=== PATIENT | female | born 1970 | race African-American/Black ===

== ENCOUNTER 2017-11-15 14:27 | Observation (INO) ==
[2017-11-15] MEDS ORDERED: DIPH/TET/ACEL PERT BOOSTER VACCINE 0.5 ML VIAL IM ONE (15:26)
[2017-11-15] MEDS ORDERED: FAMOTIDINE 20 MG TABLET ONE (15:26)
[2017-11-15] MEDS ORDERED: FAMOTIDINE 20 MG/2 ML VIAL IV STA (15:28)
[2017-11-15] MEDS ORDERED: HEPARIN 5,000 UNIT/1 ML VIAL ONE (15:43)
[2017-11-15 15:47] LABS: Bilirubin,Total 0.5 MG/DL (0.2-1.0); Total Protein 7.5 G/DL (6.4-8.3)
[2017-11-15 15:54] LABS: Potassium 3.5 MMOL/L (3.5-5.1)
[2017-11-15 15:55] LABS: Albumin 3.5 G/DL (3.4-5.0); Calcium 8.7 MG/DL (8.5-10.1); Osmolality,Calculated 275.4 MOS/KG (273-304)
[2017-11-15 15:58] LABS: Basophils % 0.4 % (0.0-0.8); Eosinophils # 0.2 10*3/uL (0.0-0.87); Eosinophils % 2.1 % (0.00-10.9); Immature Granulocytes % 0.4 %; Immature Granulocytes Absolute 0.03 #; Lymphocytes # 2.4 10*3/uL (1.4-4.0); Lymphocytes % 28.9 % (21.3-54.2); Mean Corpuscular HGB Conc 26.2 GM/DL (32-36); Mean Corpuscular Hemoglobin 16 PG (27-34); Mean Corpuscular Volume 59.1 FL (87-102); Monocytes # 0.6 10*3/uL (0.11-0.8); Monocytes % 6.7 % (1.7-12.7); Neutrophils # 5.2 10*3/uL (1.4-7.4); Neutrophils % 61.5 % (38.7-73.9); Platelet Count 298 T/CUMM (130-400); Red Blood Count 4.91 MC/CUMM (3.8-5.5); Red Cell Distribution Width 25.6 % (9.3-17.3); White Blood Count 8.4 T/CUMM (4-12)
[2017-11-15 16:05] LABS: Hemoglobin 7.9 GM/DL (12.0-16.0)
[2017-11-15] MEDS ORDERED: FAMOTIDINE 20 MG TABLET PO STA (16:11)
[2017-11-15] MEDS ORDERED: ceFAZolin 1,000 MG VIAL ONE (16:19)
[2017-11-15] MEDS ORDERED: SODIUM CHLORIDE 0.9% 1,000 ML IV STA (16:31)
[2017-11-15] MEDS ORDERED: TISSUE ADHESIVE 1 EACH APPLICATOR TOP ONE (16:42)
[2017-11-15 16:49] LABS: Eosinophils 1 % (0-10); Lymphocytes 27 % (20-55); Segmented Neutrophils 66 % (50-85); Total Cells Counted 100
[2017-11-15 16:50] LABS: Anisocytosis 1+; Hypochromasia 2+; Target Cells 1+
[2017-11-15 16:51] LABS: Acanthocytes 1+; Ovalocytes 1+; Platelet Estimate Adequate; Tear Drop Cells 1+
[2017-11-15] MEDS ORDERED: ACETAMINOPHEN 325 MG TABLET PO PRN (16:53)
[2017-11-15] MEDS ORDERED: ONDANSETRON 4 MG/2 ML VIAL IV PRN (16:53)
[2017-11-15] MEDS ORDERED: PROPOFOL 200 MG/20 ML VIAL IV ONE (17:01)
[2017-11-15] MEDS ORDERED: SUCCINYLCHOLINE 200 MG/10 ML VIAL ONE (17:02)
[2017-11-15] MEDS ORDERED: MIDAZOLAM 2 MG/2 ML VIAL ONE (17:02)
[2017-11-15] MEDS ORDERED: fentaNYL 100 MCG/2 ML VIAL ONE (17:02)
[2017-11-15] MEDS ORDERED: ONDANSETRON 4 MG/2 ML VIAL ONE (17:02)
[2017-11-15] MEDS ORDERED: DEXAMETHASONE 10 MG/1 ML VIAL ONE (17:02)
[2017-11-15] MEDS ORDERED: SEVOFLURANE 1 UNIT/15 MINUTE INH ONE (17:02)
[2017-11-16] MEDS ORDERED: PANTOPRAZOLE 40 MG TABLET PO SCH (09:00)
[2017-11-16 09:03] VITALS: BP 174/93
== END 2017-11-16 12:05 | disposition home or self-care (01) ==
LOC: N.ED 14:27 → N.EDINP 16:00 → N.3E 16:00 → INTOOBSV 16:00 → N.3E 16:54
PROVIDERS: ADMIT Surgery; ATTEND Surgery

== ENCOUNTER 2017-12-20 11:32 | Observation (INO) ==
[2017-12-20] MEDS ORDERED: ACETAMINOPHEN 325 MG TABLET PO PRN (16:07)
[2017-12-20] MEDS ORDERED: traZODone 50 MG TABLET PO PRN (16:07)
[2017-12-20] MEDS ORDERED: NICOTINE 21 MG/24 HR PATCH TRANSDERM PRN (16:07)
[2017-12-20 16:15] LABS: Basophils % 0.1 % (0.0-0.8); Eosinophils # 0.2 10*3/uL (0.0-0.87); Eosinophils % 2.6 % (0.00-10.9); Hematocrit 24.7 VOL% (35.7-47.0); Immature Granulocytes % 0.4 %; Immature Granulocytes Absolute 0.03 #; Lymphocytes # 2.6 10*3/uL (1.4-4.0); Lymphocytes % 35.2 % (21.3-54.2); Mean Corpuscular HGB Conc 25.9 GM/DL (32-36); Mean Corpuscular Hemoglobin 15 PG (27-34); Mean Corpuscular Volume 59.2 FL (87-102); Monocytes # 0.5 10*3/uL (0.11-0.8); Monocytes % 6.8 % (1.7-12.7); Neutrophils % 54.9 % (38.7-73.9); Platelet Count 215 T/CUMM (130-400); Red Blood Count 4.17 MC/CUMM (3.8-5.5); Red Cell Distribution Width 25.2 % (9.3-17.3); White Blood Count 7.3 T/CUMM (4-12)
[2017-12-20 16:18] LABS: Hemoglobin 6.4 GM/DL (12.0-16.0)
[2017-12-20] MEDS ORDERED: SODIUM CHLORIDE 0.9% 1,000 ML IV PRN (16:31)
[2017-12-20] MEDS ORDERED: ENOXAPARIN 40 MG/0.4 ML SYRINGE SUBCUT SCH (21:00)
[2017-12-21 05:41] LABS: Calcium 8.5 MG/DL (8.5-10.1); Osmolality,Calculated 277.4 MOS/KG (273-304); Potassium 4.1 MMOL/L (3.5-5.1)
[2017-12-21 06:11] LABS: Basophils % 0.1 % (0.0-0.8); Eosinophils # 0.2 10*3/uL (0.0-0.87); Eosinophils % 2.4 % (0.00-10.9); Hematocrit 29.5 VOL% (35.7-47.0); Hemoglobin 8.5 GM/DL (12.0-16.0); Immature Granulocytes % 1.1 %; Immature Granulocytes Absolute 0.09 #; Lymphocytes # 2.8 10*3/uL (1.4-4.0); Lymphocytes % 33.2 % (21.3-54.2); Mean Corpuscular HGB Conc 28.8 GM/DL (32-36); Mean Corpuscular Hemoglobin 18 PG (27-34); Mean Corpuscular Volume 63.2 FL (87-102); Monocytes # 0.8 10*3/uL (0.11-0.8); Monocytes % 9.8 % (1.7-12.7); NRBC # 0.02 10*3/uL; Neutrophils # 4.5 10*3/uL (1.4-7.4); Neutrophils % 53.4 % (38.7-73.9); Platelet Count 162 T/CUMM (130-400); Red Blood Count 4.67 MC/CUMM (3.8-5.5); Red Cell Distribution Width 29.7 % (9.3-17.3); White Blood Count 8.4 T/CUMM (4-12)
[2017-12-21 06:21] LABS: Hypochromasia 1+; Platelet Estimate Adequate
[2017-12-21 06:22] LABS: Target Cells Few; Tear Drop Cells Slight
[2017-12-21 08:04] VITALS: BP 161/92
[2017-12-21] MEDS ORDERED: LISINOPRIL 10 MG TABLET PO SCH (09:00)
[2017-12-21] MEDS ORDERED: methIMAzole 10 MG TABLET PO SCH (09:00)
== END 2017-12-21 08:15 | disposition home or self-care (01) ==
LOC: N.2E → SUATTDRO 12:19
PROVIDERS: ADMIT Internal Medicine; ATTEND Internal Medicine Geriatric Medicine